=== PATIENT | male | born 1965 | race Caucasian/White ===

== ENCOUNTER 2016-09-13 09:44 | Emergency (ER) | payer MEDICARE ==
[2016-09-13 12:41] LABS: BASOPHILS 0.5 % (0-2); EOSINOPHILS 3.4 % (0-7); HEMATOCRIT 41.7 % (42.0-54.0); IMMATURE GRANULOCYTES 0.2 % (0-5); LYMPHOCYTES 37.6 % (15-50); MCH 30.1 pg (26.0-34.0); MCHC 33.6 g/dL (31.0-37.0); MCV 89.7 fL (80.0-100.0); MEAN PLATELET VOLUME 10.7 fL (7.4-10.4); MONOCYTES 6.1 % (2-11); NEUTROPHILS 52.2 % (40-80); PLATELET COUNT 247 10x3/uL (130-400); RBC 4.65 10x6/uL (4.20-6.10); RDW 12.9 % (11.5-14.5); WBC 6.2 10x3/uL (4.8-10.8)
[2016-09-13 12:49] LABS: ALBUMIN 3.2 g/dL (3.4-5.0); ALKALINE PHOSPHATASE 78 U/L (46-116); ALT (SGPT) 36 U/L (10-68); CALC OSMOLALITY 277 mosm/kg (275-300); CALCIUM 8.4 mg/dL (8.5-10.1); CARBON DIOXIDE 28.5 mmol/L (21.0-32.0); CHLORIDE - SERUM 102 mmol/L (98-107); CREATININE - SERUM 0.9 mg/dL (0.6-1.3); POTASSIUM - SERUM 4.2 mmol/L (3.5-5.1); PROTEIN - SERUM 6.6 g/dL (6.4-8.2); SODIUM 136 mmol/L (136-145); UREA NITROGEN 10 mg/dL (7-18); eGFR NON AFRICAN AMERICAN > 90 mL/min (90-120)
[2016-09-13 12:51] LABS: GLUCOSE 218 mg/dL (74-106)
[2016-09-13 12:52] LABS: TROPONIN-I < 0.017 ng/mL (0.000-0.060)
== END 2016-09-13 13:02 | disposition home or self-care (01) ==
LOC: D.ER 09:44
PROVIDERS: Physician Assistant
DX: J44.1 Chronic obstructive pulmonary disease with (acute) exacerbation (principal); E78.00 Pure hypercholesterolemia, unspecified; I10 Essential (primary) hypertension; F17.200 Nicotine dependence, unspecified, uncomplicated

== ENCOUNTER 2016-09-28 12:38 | Emergency (ER) | payer MEDICARE ==
[2016-09-28 13:02] LABS: BASOPHILS 0.5 % (0-2); EOSINOPHILS 3.8 % (0-7); HEMATOCRIT 39.7 % (42.0-54.0); HEMOGLOBIN 13.1 g/dL (13.5-17.5); IMMATURE GRANULOCYTES 0.2 % (0-5); LYMPHOCYTES 27.7 % (15-50); MCH 29.8 pg (26.0-34.0); MCV 90.4 fL (80.0-100.0); MEAN PLATELET VOLUME 10.1 fL (7.4-10.4); MONOCYTES 8.3 % (2-11); NEUTROPHILS 59.5 % (40-80); PLATELET COUNT 214 10x3/uL (130-400); RBC 4.39 10x6/uL (4.20-6.10); RDW 12.8 % (11.5-14.5); WBC 6.7 10x3/uL (4.8-10.8)
[2016-09-28 13:21] LABS: ALBUMIN 3.1 g/dL (3.4-5.0); ALKALINE PHOSPHATASE 79 U/L (46-116); ALT (SGPT) 41 U/L (10-68); BILIRUBIN - TOTAL 0.26 mg/dL (0.2-1.3); CALC OSMOLALITY 285 mosm/kg (275-300); CALCIUM 8.5 mg/dL (8.5-10.1); CARBON DIOXIDE 25.1 mmol/L (21.0-32.0); CHLORIDE - SERUM 101 mmol/L (98-107); POTASSIUM - SERUM 3.9 mmol/L (3.5-5.1); PROTEIN - SERUM 6.2 g/dL (6.4-8.2); SODIUM 136 mmol/L (136-145); UREA NITROGEN 8 mg/dL (7-18); eGFR NON AFRICAN AMERICAN 83 mL/min (90-120)
[2016-09-28 13:23] LABS: GLUCOSE 387 mg/dL (74-106)
== END 2016-09-28 14:36 | disposition home or self-care (01) ==
LOC: D.ER 12:38
PROVIDERS: Emergency Medicine
DX: R06.02 Shortness of breath (principal)

== ENCOUNTER 2016-09-29 10:16 | Emergency (ER) | payer MEDICARE ==
[2016-09-29 11:13] LABS: BASOPHILS 0.9 % (0-2); EOSINOPHILS 3.7 % (0-7); HEMATOCRIT 41.1 % (42.0-54.0); HEMOGLOBIN 13.7 g/dL (13.5-17.5); IMMATURE GRANULOCYTES 0.3 % (0-5); LYMPHOCYTES 28.6 % (15-50); MCH 29.9 pg (26.0-34.0); MCHC 33.3 g/dL (31.0-37.0); MCV 89.7 fL (80.0-100.0); MEAN PLATELET VOLUME 10.1 fL (7.4-10.4); MONOCYTES 5.9 % (2-11); NEUTROPHILS 60.6 % (40-80); PLATELET COUNT 223 10x3/uL (130-400); RBC 4.58 10x6/uL (4.20-6.10); RDW 12.8 % (11.5-14.5)
[2016-09-29 11:32] LABS: ALKALINE PHOSPHATASE 72 U/L (46-116); ALT (SGPT) 40 U/L (10-68); CALC OSMOLALITY 279 mosm/kg (275-300); CALCIUM 8.5 mg/dL (8.5-10.1); CARBON DIOXIDE 25.3 mmol/L (21.0-32.0); CHLORIDE - SERUM 101 mmol/L (98-107); CREATININE - SERUM 0.9 mg/dL (0.6-1.3); GLUCOSE 285 mg/dL (74-106); POTASSIUM - SERUM 4.2 mmol/L (3.5-5.1); PROTEIN - SERUM 6.2 g/dL (6.4-8.2); SODIUM 135 mmol/L (136-145); UREA NITROGEN 12 mg/dL (7-18); eGFR NON AFRICAN AMERICAN > 90 mL/min (90-120)
[2016-09-29 11:43] LABS: CKMB 1.7 U/L (0.0-3.6); CREATINE KINASE 91 UL (21-232); PRO BNP 128 pg/mL (0-125); TROPONIN-I < 0.017 ng/mL (0.000-0.060)
== END 2016-09-29 14:59 | disposition home or self-care (01) ==
LOC: D.ER 10:16
PROVIDERS: Emergency Medicine
DX: R07.9 Chest pain, unspecified (principal); J44.1 Chronic obstructive pulmonary disease with (acute) exacerbation; I10 Essential (primary) hypertension

== ENCOUNTER 2017-12-30 21:29 | Emergency (ER) | payer MEDICARE ==
[~2017-12-30] VITALS: Ht 185.4 cm; Wt 79.5 kg
[2017-12-30 21:35] VITALS: Ht 185.4 cm; Wt 79.5 kg
[2017-12-30] MEDS ORDERED: GLUCOPHAGE500 MG PO (21:37)
[2017-12-30] MEDS ORDERED: LIPITOR40 MG PO (21:37)
[2017-12-30] MEDS ORDERED: NEURONTIN600 MG PO (21:37)
[2017-12-30] MEDS ORDERED: ANAPROX DS550 MG PO (23:05)
[2017-12-31 02:33] VITALS: BP 109/57
== END 2017-12-30 23:35 | disposition home or self-care (01) ==
LOC: D.ER 21:29
DX: S00.93XA Contusion of unspecified part of head, initial encounter (principal); Y04.2XXA Assault by strike against or bumped into by another person, initial encounter; Y93.89 Activity, other specified; Y92.89 Other specified places as the place of occurrence of the external cause; S30.810A Abrasion of lower back and pelvis, initial encounter; F90.9 Attention-deficit hyperactivity disorder, unspecified type; E11.9 Type 2 diabetes mellitus without complications; I10 Essential (primary) hypertension; J44.9 Chronic obstructive pulmonary disease, unspecified; F17.200 Nicotine dependence, unspecified, uncomplicated

== ENCOUNTER 2018-07-22 20:34 | Emergency (ER) | payer MEDICARE ==
[~2018-07-22] VITALS: Ht 185.4 cm; Wt 79.4 kg
[~2018-07-22 20:34] MED LIST: ANAPROX DS550 MG PO; GLUCOPHAGE500 MG PO; LIPITOR40 MG PO; NEURONTIN600 MG PO
[2018-07-22 20:48] VITALS: Ht 185.4 cm; Wt 79.4 kg
[2018-07-22 21:27] LABS: BASOPHILS 0.6 % (0-2); HEMATOCRIT 40.1 % (42.0-54.0); HEMOGLOBIN 13.5 g/dL (13.5-17.5); IMMATURE GRANULOCYTES 0.3 % (0-5); LYMPHOCYTES 29.4 % (15-50); MCH 29.9 pg (26.0-34.0); MCHC 33.7 g/dL (31.0-37.0); MCV 88.9 fL (80.0-100.0); MEAN PLATELET VOLUME 9.4 fL (7.4-10.4); NEUTROPHILS 56.7 % (40-80); RBC 4.51 10x6/uL (4.20-6.10); RDW 12.3 % (11.5-14.5); WBC 9.7 10x3/uL (4.8-10.8)
[2018-07-22 21:28] LABS: PLATELET COUNT 373 10x3/uL (130-400)
[2018-07-22 21:52] LABS: ALBUMIN 2.8 g/dL (3.4-5.0); ALKALINE PHOSPHATASE 85 U/L (46-116); ALT (SGPT) 24 U/L (10-68); CALC OSMOLALITY 282 mosm/kg (275-300); CALCIUM 8.9 mg/dL (8.5-10.1); CARBON DIOXIDE 25.5 mmol/L (21.0-32.0); CHLORIDE - SERUM 102 mmol/L (98-107); GLUCOSE 259 mg/dL (74-106); POTASSIUM - SERUM 4.2 mmol/L (3.5-5.1); PROTEIN - SERUM 7.1 g/dL (6.4-8.2); SODIUM 136 mmol/L (136-145); UREA NITROGEN 17 mg/dL (7-18); eGFR NON AFRICAN AMERICAN 83 mL/min (90-120)
[2018-07-22] MEDS ORDERED: ALBUTEROL SULF8.5 GM INH (23:12)
[2018-07-22] MEDS ORDERED: PROVENTIL/2.5 MG/3 M INH (23:12)
[2018-07-22] MEDS ORDERED: PREDNISONE10 MG PO (23:12)
[2018-07-22] MEDS ORDERED: LEVOFLOXACIN500 MG PO (23:12)
[2018-07-22 23:30] VITALS: BP 131/64
== END 2018-07-22 23:30 | disposition home or self-care (01) ==
LOC: D.ER 20:34
PROVIDERS: Family Medicine
DX: J44.1 Chronic obstructive pulmonary disease with (acute) exacerbation (principal); E11.9 Type 2 diabetes mellitus without complications; R05 Cough; R09.89 Other specified symptoms and signs involving the circulatory and respiratory systems

== ENCOUNTER 2018-12-03 14:12 | Emergency (ER) | payer MEDICARE ==
[~2018-12-03] VITALS: Ht 185.4 cm; Wt 79.5 kg
[~2018-12-03 14:12] MED LIST changes: +ALBUTEROL SULF8.5 GM INH; +LEVOFLOXACIN500 MG PO; +PREDNISONE10 MG PO; +PROVENTIL/2.5 MG/3 M INH
[2018-12-03 14:20] VITALS: Ht 185.4 cm; Wt 79.5 kg
[2018-12-03 15:47] LABS: BASOPHILS 0.7 % (0-2); EOSINOPHILS 4.1 % (0-7); HEMATOCRIT 36.2 % (42.0-54.0); HEMOGLOBIN 12.1 g/dL (13.5-17.5); IMMATURE GRANULOCYTES 0.2 % (0-5); LYMPHOCYTES 32.8 % (15-50); MCH 29.3 pg (26.0-34.0); MCHC 33.4 g/dL (31.0-37.0); MCV 87.7 fL (80.0-100.0); MEAN PLATELET VOLUME 9.2 fL (7.4-10.4); MONOCYTES 9.5 % (2-11); NEUTROPHILS 52.7 % (40-80); PLATELET COUNT 317 10x3/uL (130-400); RBC 4.13 10x6/uL (4.20-6.10); RDW 12.9 % (11.5-14.5); WBC 5.8 10x3/uL (4.8-10.8)
[2018-12-03 15:51] LABS: INR 1.05 (0.85-1.17); PROTIME 13.2 SECONDS (11.6-15.0)
[2018-12-03 15:52] LABS: APTT 31.7 SECONDS (22.8-39.4)
[2018-12-03 15:58] LABS: ALBUMIN 2.9 g/dL (3.4-5.0); ALKALINE PHOSPHATASE 82 U/L (46-116); ALT (SGPT) 32 U/L (10-68); BILIRUBIN - TOTAL 0.25 mg/dL (0.2-1.3); CALC OSMOLALITY 274 mosm/kg (275-300); CALCIUM 8.4 mg/dL (8.5-10.1); CHLORIDE - SERUM 102 mmol/L (98-107); CREATININE - SERUM 0.8 mg/dL (0.6-1.3); POTASSIUM - SERUM 4.2 mmol/L (3.5-5.1); PROTEIN - SERUM 6.5 g/dL (6.4-8.2); SODIUM 135 mmol/L (136-145); UREA NITROGEN 12 mg/dL (7-18); eGFR NON AFRICAN AMERICAN > 90 mL/min (90-120)
[2018-12-03 16:01] LABS: GLUCOSE 181 mg/dL (74-106)
[2018-12-03 16:27] LABS: CREATINE KINASE 80 UL (21-232); MAGNESIUM - SERUM 1.8 mg/dL (1.8-2.4)
[2018-12-03 16:28] LABS: TROPONIN-I < 0.017 ng/mL (0.000-0.060)
[2018-12-03] MEDS ORDERED: HYDROCODON-ACE1 EA10 PO (17:56)
[2018-12-03 18:24] VITALS: BP 142/78
== END 2018-12-03 18:25 | disposition home or self-care (01) ==
LOC: D.ER 14:12
PROVIDERS: Family Medicine
DX: S22.31XA Fracture of one rib, right side, initial encounter for closed fracture (principal); V29.88XA Motorcycle rider (driver) (passenger) injured in other specified transport accidents, initial encounter; E11.9 Type 2 diabetes mellitus without complications; I10 Essential (primary) hypertension; J44.9 Chronic obstructive pulmonary disease, unspecified; F17.210 Nicotine dependence, cigarettes, uncomplicated

== ENCOUNTER 2020-09-15 16:08 | Emergency (ER) | payer MEDICARE ==
[~2020-09-15] VITALS: Ht 185.4 cm; Wt 79.1 kg
[~2020-09-15 16:08] MED LIST changes: +HYDROCODON-ACE1 EA10 PO
[2020-09-15 16:13] VITALS: Ht 185.4 cm; Wt 79.1 kg
[2020-09-15] MEDS ORDERED: ERYTHROMYCIN OPT1 GM LEFT EYE (17:48)
[2020-09-15] MEDS ORDERED: DICLOFENAC SODI50 MG PO (17:48)
[2020-09-15] MEDS ORDERED: HYDROCODON-ACE1 EAC7 PO (17:48)
[2020-09-15 18:04] VITALS: BP 136/84
== END 2020-09-15 18:04 | disposition home or self-care (01) ==
LOC: D.ER 16:08
DX: M54.2 Cervicalgia (principal); M54.5 Low back pain; G89.29 Other chronic pain; S05.02XA Injury of conjunctiva and corneal abrasion without foreign body, left eye, initial encounter; T15.02XA Foreign body in cornea, left eye, initial encounter; E11.9 Type 2 diabetes mellitus without complications; I10 Essential (primary) hypertension; J44.9 Chronic obstructive pulmonary disease, unspecified; Z72.0 Tobacco use; X58.XXXA Exposure to other specified factors, initial encounter; Z79.84 Long term (current) use of oral hypoglycemic drugs